=== PATIENT | male | born 1965 | race Caucasian/White ===

== ENCOUNTER 2025-09-26 15:53 | Emergency (ER) | payer OTHER ==
[~2025-09-26] VITALS: Ht 182.9 cm; Wt 78.9 kg
[2025-09-26 15:58] VITALS: BP 137/85
[2025-09-26] MEDS ORDERED: LORA-259 PO (17:06)
[2025-09-26 17:22] VITALS: BP 137/85; TEMP 97.9; O2SAT 99
== END 2025-09-26 17:35 | disposition home or self-care (01) ==
LOC: ER 15:53
DX: F41.0 Panic disorder [episodic paroxysmal anxiety] (principal); F32.A Depression, unspecified; F19.10 Other psychoactive substance abuse, uncomplicated; F12.90 Cannabis use, unspecified, uncomplicated; R00.2 Palpitations; F41.1 Generalized anxiety disorder; Z91.030 Bee allergy status
CPT/HCPCS: A4606; A4663